=== PATIENT | male | born 1990 | race African-American/Black ===

== ENCOUNTER 2019-01-25 08:59 | Emergency (ER) | payer OTHER, SELFPAY ==
[2019-01-25 09:06] VITALS: BP 167/87; PULSE 81; RESP 16; TEMP 36.8; O2SAT 96; BMI 29.1
[2019-01-25] MEDS: ACETAMINOPHEN 325 MG TABLET 650 MG PO (09:59)
[2019-01-25] MEDS: IBUPROFEN 400 MG TABLET 800 MG PO (09:59)
--- NOTE | 2019-01-25 10:18 | ED_ITS ---
HPI - URI/Sore Throat General Chief Complaint: Upper Respiratory Symptoms Stated Complaint: 'not feeling well' Time Seen by Provider: 01/25/19 09:08 Source: patient Mode of arrival: Ambulatory Limitations: no limitations History of Present Illness HPI Narrative: Patient comes emergency department complaining of feeling generally ill and upper respiratory symptoms. He states that the symptoms started a couple of days ago, and that he is noticed headaches, cough, general malaise, and some body aches. He denies sore throat. No known fevers. He has had a runny nose and has been sneezing a lot. The patient states that he flew back from [facility] 2 weeks ago to [place] to deal with the sudden of his mother. Patient states he has been under lot of stress with family tensions, the grieving process, and the stress of making arrangements. He states he has also been off of his usual schedule of eating and staying hydrated, on top of traveling a lot in the last couple of weeks. He states that he is not headed back to [facility] but will be staying here for the time being. He has not had any known sick contacts. 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 Patient states his headache is not that bad right no, and that actually, it is more of a dull pressure. Related Data Allergies Allergy/AdvReac Type Severity Reaction Status Date / Time No Known Drug Allergies Allergy Verified 01/25/19 09:06 Review of Systems Constitutional Constitutional: Denies chills, Denies fatigue, Denies fever(s), Denies frequent falls, Reports headache(s), Denies lethargy and Denies weakness Eyes Eyes: Denies change in vision, Denies eye discharge, Denies irritation and Denies loss of vision ENT Ears, Nose, Mouth, and Throat: Denies change in voice, Denies dizziness, Reports headache(s), Reports nasal congestion, Denies neck pain, Denies sore throat and Denies throat swelling Cardiovascular Cardiovascular: Denies chest pain, Denies irregular heart rhythm, Denies lightheadedness, Denies palpitations, Denies dyspnea, Denies dyspnea on exertion and Denies orthopnea Respiratory Respiratory: Reports cough, Denies dyspnea, Denies dyspnea on exertion and Denies wheezing Gastrointestinal Gastrointestinal: Denies abdominal pain, Denies change in bowel habits, Denies diarrhea, Denies nausea and Denies vomiting Genitourinary Genitourinary: Denies hematuria, Denies flank pain, Denies urinary incontinence and Denies urinary urgency Musculoskeletal Musculoskeletal: Denies back pain, Denies muscle weakness, Denies neck pain, Denies numbness and Denies tingling Integumentary/Breasts Skin/Breast: Denies pruritus, Denies erythema, Denies rash and Denies wounds Neurologic Neurologic: Denies behavioral changes, Denies confusion, Denies dizziness, Denies frequent falls, Reports headache(s), Denies loss of vision, Denies numbness, Denies tingling and Denies weakness Psychiatric Psychiatric: Denies anxiety, Denies behavioral changes, Denies confusion, Denies depression, Denies homicidal ideation and Denies suicidal ideation Endocrine Endocrine: Denies fatigue, Denies flushing and Denies palpitations Hematologic/Lymphatic Hematologic/Lymphatic: Denies easy bruising Allergic/Immunologic Allergic/Immunologic: Denies urticaria, Denies throat swelling and Denies wheezing Patient History Medical History Healthy adult (Acute) Social History Smoking Status: Never smoker Smoking Status: Never smoker alcohol intake frequency: a few times a week Substance Use Type: does not use Exam Initial Vital Signs Initial Vital Signs: Vital Signs Temperature 98.2 F 01/25/19 09:06 Pulse Rate 81 01/25/19 09:06 Respiratory Rate 16 01/25/19 09:06 Blood Pressure 167/87 H 01/25/19 09:06 Pulse Oximetry 96 01/25/19 09:06 Const General: cooperative and well developed Nutritional Appearance: well nourished Orientation: alert, awake, oriented x3 and not confused [facility] Head: normocephalic and atraumatic Ears: external ears normal Nose: external nose normal and No nasal discharge Face and sinus: face symmetric and No dry mucous membranes Mouth: oral mucosae normal and moist mucous membranes Teeth and gingiva: dentition normal Throat: tonsils normal and uvula midline Eyes General: appearance normal, both eyes and all related structures Eyelids: eyelids normal Conjunctivae: conjunctivae normal Sclera: sclerae normal Pupils: PERRL EOM: EOM intact bilaterally Neck Neck: normal visual inspection, trachea midline, No lymphadenopathy, No midline deformity and No JVD Lymphatic: No lymphedema Chest Chest: normal inspection of the chest Resp Effort & Inspection: normal respiratory effort, able to speak in complete sentences, no respiratory distress and no use of accessory muscles Auscultation: clear to auscultation bilaterally, no rales, no rhonchi and no wheezes Cardio Rate: regular rate Rhythm: regular rhythm Heart Sounds: no click, no gallops, no murmurs and no rubs Pulses: normal peripheral pulses GI Inspection: non-distended Palpation: soft, no hepatosplenomegaly, No guarding, No pulsatile mass and No tender Back/Spine/Pelvis Back: No CVA tenderness Cervical Spine: cervical ROM normal and No pain with cervical ROM Thoracic/Lumbar Spine: thoracic and lumbar spine normal to inspection Skin General: no rashes or lesions noted, No jaundice and No petechiae Neuro General: alert, oriented x3, gait normal and no focal motor deficits Speech: speech normal Extrem General: full ROM, no clubbing, cyanosis or edema, no pedal edema and no calf tenderness Psych Appearance: well kempt Mental Status: mental status grossly normal Attitude: cooperative Thought Content: normal and suicidality Judgment: judgment good Course Course Course Narrative: The patient was worked up with influenza testing, which was negative. He was treated symptomatically with ibuprofen and Tylenol in the emergency department. We've discussed home management of the symptoms, as well as the usual indications for return. Orders Ordered: ED Orders 01/25/19 10:01 Influenza A & B (PCR) Stat Discontinued Medications Acetaminophen (Tylenol) 650 mg PO NOW ONE Stop: 01/25/19 09:54 Last Admin: 01/25/19 09:59 Dose: 650 mg Documented by: SCANAPO Ibuprofen (Advil) 800 mg PO NOW ONE Stop: 01/25/19 09:54 Last Admin: 01/25/19 09:59 Dose: 800 mg Documented by: SCANAPO Vital Signs Vital signs: Vital Signs - 8 hr 01/25/19 09:06 Temperature 98.2 F Pulse Rate 81 Respiratory Rate 16 Blood Pressure 167/87 H Pulse Oximetry 96 MDM - URI/Sore Throat Medical Records Attestation: I reviewed the patient's medical records. Lab Data Attestation: I reviewed the patient's lab results. Labs: Lab Results 01/25/19 Range/Units 10:01 Influenza A (RT-PCR) Flu a negative (NEGATIVE) Influenza B (RT-PCR) Flu b negative (NEGATIVE) Discharge Plan Departure Patient Disposition: Home Clinical Impression: Upper respiratory infection Qualifiers: URI type: unspecified viral URI Qualified Code(s): J06.9 - Acute upper respiratory infection, unspecified Instructions: DI for Viral Upper Respiratory Infection -- Adult Activity Restrictions/Additional Instructions: Your influenza testing is negative. You most likely have one of the many viruses that are going around right now. Please use Tylenol and ibuprofen to help with discomfort, and be sure to drink plenty of fluids. Please follow-up with your primary care physician. Stand Alone Forms: Work/School Release
[2019-01-25 10:41] LABS: Influenza A - CEPHEID Flu A NEGATIVE (NEGATIVE); Influenza B - CEPHEID Flu B NEGATIVE (NEGATIVE)
[2019-01-25 11:07] VITALS: BP 158/77; PULSE 80; RESP 16; O2SAT 98
== END 2019-01-25 11:08 | disposition home or self-care (01) ==
PROVIDERS: Emergency Provider Emergency Medicine
DX: J06.9 Acute upper respiratory infection, unspecified (principal)
CPT/HCPCS: 87502; 99283